=== PATIENT | female | born 1960 | race Caucasian/White ===

== ENCOUNTER 2016-06-26 09:26 | Outpatient (CLI) | payer OTHER | END 2016-06-26 09:27 | disposition home or self-care (01) | DX: K76.0 Fatty (change of) liver, not elsewhere classified (principal); R14.0 Abdominal distension (gaseous) ==

== ENCOUNTER 2016-06-26 10:04 | Outpatient (CLI) | payer OTHER | END 2016-06-26 10:05 | disposition home or self-care (01) | DX: Z12.31 Encounter for screening mammogram for malignant neoplasm of breast (principal) ==

== ENCOUNTER 2017-07-17 08:05 | Outpatient (CLI) | payer OTHER ==
[2017-07-17 12:43] LABS: BASOPHILS % (AUTO) 0.9 %; EOSINOPHILS # (AUTO) 0.1 10^3/uL (0.0-0.7); EOSINOPHILS % (AUTO) 1.7 %; HGB - HEMOGLOBIN 12.9 g/dL (12.0-16.0); LYMPHOCYTES # (AUTO) 1.8 10^3/uL (1.5-3.5); LYMPHOCYTES % (AUTO) 37.9 %; MEAN CORPUSCULAR HEMOGLOBIN 33.4 pg (27.0-31.0); MEAN CORPUSCULAR HGB CONC 34.4 g/dL (32.0-36.0); MEAN CORPUSCULAR VOLUME 96.9 fL (81.0-99.0); MEAN PLATELET VOLUME 8.7 fL (7.9-10.8); MONOCYTES # (AUTO) 0.4 10^3/uL (0.0-1.0); MONOCYTES % (AUTO) 8.3 %; NEUTROPHILS # (AUTO) 2.5 10^3/uL (1.5-6.6); NEUTROPHILS % (AUTO) 51.2 %; PLT - PLATELET COUNT 252 10^3/uL (130-450); RED BLOOD COUNT 3.87 10^6/uL (4.20-5.40); RED CELL DISTRIBUTION WIDTH 12.1 % (12.0-15.0); WHITE BLOOD COUNT 4.9 x10^3/uL (4.8-10.8)
[2017-07-17 13:03] LABS: ALBUMIN 4.5 g/dL (3.2-5.5); ALBUMIN/GLOBULIN RATIO 1.7 (1.0-2.2); ALKALINE PHOSPHATASE 42 IU/L (42-121); ALT ALANINE AMINOTRANSFERASE 26 IU/L (10-60); AST ASPARTATE AMINOTRANSFERASE 24 IU/L (10-42); BILIRUBIN,TOTAL 0.8 mg/dL (0.2-1.0); BUN - BLOOD UREA NITROGEN 10 mg/dL (6-20); CALCIUM 9.5 mg/dL (8.5-10.3); CARBON DIOXIDE - CO2 27 mmol/L (21-32); CHLORIDE 101 mmol/L (101-111); CHOL/HDL RATIO 3.9 (<4.4); CHOLESTEROL 235 mg/dL; CREATININE 0.8 mg/dL (0.4-1.0); GFR - MDRD 74 (>89); GLUCOSE 95 mg/dL (70-100); HDL CHOLESTEROL 60 mg/dL; LDL CHOLESTEROL,CALCULATED 160 mg/dL; LDL/HDL RATIO 2.7 (<4.4); SODIUM 135 mmol/L (135-145); TOTAL PROTEIN 7.1 g/dL (6.7-8.2); VLDL CHOLESTEROL 15 mg/dL
[2017-07-17 13:22] LABS: HB2 TOTAL 13.8 g/dL; HEMOGLOBIN A1C 0.49 g/dL; HEMOGLOBIN A1C % 5.4 % (4.6-6.2)
== END 2017-07-17 08:06 | disposition home or self-care (01) ==
LOC: LAB.R 08:05
PROVIDERS: ATTEND Nurse Practitioner Primary Care
DX: Z00.00 Encounter for general adult medical examination without abnormal findings (principal); E78.5 Hyperlipidemia, unspecified; R73.01 Impaired fasting glucose; M19.90 Unspecified osteoarthritis, unspecified site; K90.0 Celiac disease; K21.9 Gastro-esophageal reflux disease without esophagitis; K50.90 Crohn's disease, unspecified, without complications; B19.20 Unspecified viral hepatitis C without hepatic coma; Z79.899 Other long term (current) drug therapy
CPT/HCPCS: 80053; 80061; 83036; 83721; 84443; 85025

== ENCOUNTER 2017-08-02 15:09 | Outpatient (CLI) | payer OTHER ==
--- NOTE | 2017-08-03 13:10 | DEXA Report ---
DEXA SCAN: 08/02/2017 INDICATION: Postmenopausal. TECHNIQUE: Dual energy x-ray absorptiometry (DXA) was performed on a [employer] system. Regions measured are the AP spine, femoral neck, and, if needed, forearm. COMPARISON: None. In accordance with the International Society for Clinical Densitometry (ISCD) guidelines, data from previous exams may be reanalyzed using current recommendations and techniques. This is done to allow a more accurate basis for comparison with the current study. FINDINGS Data for the lumbar spine is as follows: REGION BMD (g/cm/cm) T-SCORE Z-SCORE L1 0.989 -1.2 -0.3 L2 1.000 -1.7 -0.8 L3 1.161 -0.3 0.5 L4 1.209 0.1 0.9 L1-L4 1.096 -0.7 0.1 NOTE: All evaluable vertebrae are used for classification. Data for the hip is as follows: REGION BMD (g/cm/cm) T-SCORE Z-SCORE Neck 0.830 -1.5 -0.5 TOTAL 0.880 -1.0 -0.3 NOTE: The femoral neck or total proximal femur, whichever is lowest, is used for classification. IMPRESSION WHO CLASSIFICATION BASED ON THE INTERNATIONAL REFERENCE STANDARD IS OSTEOPENIA. FRACTURE RISK IS INCREASED. RECOMMENDATION: Patients with diagnosis of osteoporosis or osteopenia should have regular bone mineral density assessment. For those eligible for Medicare, routine testing is allowed once every 2 years. Testing frequency can be increased for patients who have rapidly progressing disease or for those who are receiving medical therapy to restore bone mass. COMMENT World Health Organization (WHO) definitions for osteoporosis and osteopenia: NORMAL BMD: T-score at 1.0 or higher, fracture risk is low. OSTEOPENIA BMD: T-score between 1.0 and -2.5, fracture risk is increased. OSTEOPOROSIS BMD: T-score at 2.5 or lower, fracture risk high. National Osteoporosis Foundation recommends: 1. Obtain adequate dietary calcium (at least 1200 mg per day) and vitamin D (400 -800 international units per day). 2. Participate, as appropriate, in regular weightbearing and muscle- strengthening exercise. 3. Avoid tobacco use and reduce alcohol and caffeine intake. 4. For more detailed information see the website at www.NOF.org. TD: 08/03/2017 11:27 CAROLINE
== END 2017-08-02 15:10 | disposition home or self-care (01) ==
LOC: DI 15:09
PROVIDERS: ATTEND Nurse Practitioner Primary Care
DX: Z78.0 Asymptomatic menopausal state (principal); Z00.00 Encounter for general adult medical examination without abnormal findings
CPT/HCPCS: 77080

== ENCOUNTER 2017-08-02 15:12 | Outpatient (CLI) | payer OTHER ==
--- NOTE | 2017-08-03 20:51 | Mammography Report ---
SCREENING MAMMOGRAM: 08/03/2017 CLINICAL INDICATION: A 57-year-old for screening. COMPARISON: 06/2016, 06/2015, 03/2012, 06/2010 TECHNIQUE: Routine CC and MLO projections were obtained of the breasts. FINDINGS: The breasts again demonstrate scattered fibroglandular densities bilaterally. Coarse and punctate, typically benign calcifications are present, no suspicious masses, clustered microcalcifications, or regions of architectural distortion are identified. IMPRESSION: BENIGN FINDINGS. RECOMMENDATION: Routine annual screening unless otherwise clinically indicated. BIRADS CATEGORY - 2 BENIGN FINDINGS. STANDARD QUALIFYING STATEMENTS: 1. This examination was reviewed with the aid of Computer-Aided Detection (CAD). 2. A negative or benign imaging report should not delay biopsy if clinically suspicious findings are present. Consider surgical consultation if warranted. More than 5% of cancers are not identified by imaging. 3. Dense breasts may obscure an underlying neoplasm. TD: 08/03/2017 20:50
== END 2017-08-02 15:13 | disposition home or self-care (01) ==
LOC: DI 15:12
PROVIDERS: ATTEND Nurse Practitioner Primary Care
DX: Z00.00 Encounter for general adult medical examination without abnormal findings (principal); Z12.31 Encounter for screening mammogram for malignant neoplasm of breast
CPT/HCPCS: 77067

== ENCOUNTER 2018-06-04 09:00 | Outpatient (CLI) | payer OTHER ==
[2018-06-04 16:02] LABS: ALBUMIN 4.5 g/dL (3.2-5.5); ALBUMIN/GLOBULIN RATIO 1.7 (1.0-2.2); ALKALINE PHOSPHATASE 49 IU/L (42-121); ALT ALANINE AMINOTRANSFERASE 19 IU/L (10-60); AST ASPARTATE AMINOTRANSFERASE 19 IU/L (10-42); BASOPHILS % (AUTO) 0.6 %; BILIRUBIN,TOTAL 0.7 mg/dL (0.2-1.0); BUN - BLOOD UREA NITROGEN 17 mg/dL (6-20); CALCIUM 9.1 mg/dL (8.5-10.3); CARBON DIOXIDE - CO2 28 mmol/L (21-32); CHLORIDE 93 mmol/L (101-111); CHOL/HDL RATIO 3.2 (<4.4); CHOLESTEROL 224 mg/dL; CREATININE 0.6 mg/dL (0.4-1.0); EOSINOPHILS % (AUTO) 0.8 %; GFR - MDRD 103 (>89); GLUCOSE 96 mg/dL (70-100); HDL CHOLESTEROL 69 mg/dL; HGB - HEMOGLOBIN 12.6 g/dL (12.0-16.0); LDL CHOLESTEROL,CALCULATED 146 mg/dL; LDL/HDL RATIO 2.1 (<4.4); LYMPHOCYTES # (AUTO) 1.7 10^3/uL (1.5-3.5); LYMPHOCYTES % (AUTO) 29.3 %; MEAN CORPUSCULAR HGB CONC 33.9 g/dL (32.0-36.0); MEAN CORPUSCULAR VOLUME 97.6 fL (81.0-99.0); MEAN PLATELET VOLUME 8.6 fL (7.9-10.8); MONOCYTES # (AUTO) 0.4 10^3/uL (0.0-1.0); MONOCYTES % (AUTO) 6.9 %; NEUTROPHILS # (AUTO) 3.6 10^3/uL (1.5-6.6); NEUTROPHILS % (AUTO) 62.4 %; PLT - PLATELET COUNT 251 10^3/uL (130-450); RED CELL DISTRIBUTION WIDTH 12.2 % (12.0-15.0); SODIUM 129 mmol/L (135-145); TOTAL PROTEIN 7.1 g/dL (6.7-8.2); VLDL CHOLESTEROL 9 mg/dL; WHITE BLOOD COUNT 5.7 x10^3/uL (4.8-10.8)
[2018-06-04 16:21] LABS: HB2 TOTAL 13.4 g/dL; HEMOGLOBIN A1C 0.54 g/dL; HEMOGLOBIN A1C % 5.8 % (4.6-6.2)
== END 2018-06-04 23:59 | disposition home or self-care (01) ==
LOC: LAB.R 09:00
PROVIDERS: ATTEND Nurse Practitioner Primary Care
DX: E88.81 Metabolic syndrome and other insulin resistance (principal); K90.0 Celiac disease; K50.90 Crohn's disease, unspecified, without complications; E78.5 Hyperlipidemia, unspecified
CPT/HCPCS: 80053; 80061; 83036; 83721; 85025

== ENCOUNTER 2018-07-03 07:55 | Outpatient (CLI) | payer OTHER ==
[2018-07-03 08:33] LABS: CALCIUM 9.5 mg/dL (8.5-10.3); CREATININE 0.8 mg/dL (0.4-1.0)
== END 2018-07-03 07:56 | disposition home or self-care (01) ==
LOC: LAB 07:55
PROVIDERS: ATTEND Internal Medicine
DX: E87.1 Hypo-osmolality and hyponatremia (principal)
CPT/HCPCS: 36415; 80048; 84300

== ENCOUNTER 2018-12-07 08:16 | Outpatient (CLI) | payer OTHER ==
--- NOTE | 2018-12-07 14:13 | MRI Report ---
Reason: NEUROPATHY, NECK PAIN, CHRONIC, CLUSTER HEADACHE Procedure Date: 12/07/2018 Accession Number: [id number] / [id number] Procedure: MRI - Cervical Spine W/O CPT Code: FULL RESULT: EXAM: MRI CERVICAL SPINE WITHOUT CONTRAST EXAM DATE: 12/07/2018 09:08 AM. CLINICAL HISTORY: Neuropathy, chronic neck pain, cluster headache. COMPARISONS: 11/05/2018 radiographs. TECHNIQUE: Multiplanar, multisequence T1-weighted and fluid-sensitive sequences of the cervical spine without contrast. Other: None. FINDINGS: Neurologic Structures: The visualized posterior fossa structures are unremarkable. No signal abnormality in the visualized spinal cord. Alignment: No scoliosis or spondylolisthesis. Bone Marrow: No fractures. Type I endplate change is seen. Interspace Levels/Facets: C1-C2: Unremarkable. C2-C3: Unremarkable. C3-C4: Mild left facet osteophyte is causes mild left foraminal narrowing. A mild posterior disk/osteophyte complex causes mild spinal canal narrowing. C4-C5: Mild disk height loss is accompanied by anterior endplate spurring. A posterior disk/osteophyte complex and ligamentum flavum hypertrophy cause moderate spinal canal and left foraminal narrowing. There cord is flattened into a triangular configuration. C5-C6: The disk is desiccated. A central posterior disk/osteophyte complex and ligamentum flavum hypertrophy combined with left facet osteoarthritis to cause moderate spinal canal and severe left foraminal narrowing. The cord is flattened anteriorly. C6-C7: Unremarkable. C7-T1: A mild posterior disk protrusion causes minimal spinal canal narrowing. Musculature: Normal. No edema or fatty atrophy. Other: The paravertebral and prevertebral soft tissues are normal. IMPRESSION: 1. Mild spinal canal narrowing at C3-C4 due to disk/osteophyte complex. 2. Moderate spinal canal and left foraminal narrowing at C4-C5 due to disk and posterior element degenerative changes. 3. Moderate spinal canal and severe left foraminal narrowing at C5-C6 due to disk and posterior element degenerative changes. RADIA
== END 2018-12-07 08:17 | disposition home or self-care (01) ==
LOC: DI 08:16
PROVIDERS: ATTEND Nurse Practitioner
DX: M50.321 Other cervical disc degeneration at C4-C5 level (principal); M48.02 Spinal stenosis, cervical region; M47.812 Spondylosis without myelopathy or radiculopathy, cervical region; M50.23 Other cervical disc displacement, cervicothoracic region
CPT/HCPCS: 72141

== ENCOUNTER 2018-12-17 11:45 | Outpatient (CLI) | payer OTHER | END 2018-12-17 11:46 | disposition home or self-care (01) | LOC: LAB 11:45 | PROVIDERS: ATTEND Nurse Practitioner | DX: R53.83 Other fatigue (principal); Z79.899 Other long term (current) drug therapy | CPT/HCPCS: 36415; 82607 ==

== ENCOUNTER 2019-04-26 16:30 | Emergency (ER) | payer OTHER ==
[2019-04-26] MEDS ORDERED: HYDROmorphone 1 MG/ML CARPUJECT IVP STA (17:27)
[2019-04-26] MEDS ORDERED: CYCLOBENZAPRINE 10 MG TABLET PO STA (17:28)
[2019-04-26] MEDS ORDERED: CHERRY SYRUP 10 ML UDC PO ONE (17:28)
[2019-04-26] MEDS ORDERED: DEXAMETHASONE 10 MG/ML VIAL PO STA (17:28)
[2019-04-26] MEDS ORDERED: HYDROmorphone 1 MG/ML CARPUJECT IM STA (17:48)
--- NOTE | 2019-04-26 17:57 | ED Physician Documentation ---
PD HPI BACK PAIN - Stated complaint Stated Complaint: BACK PX - Chief complaint Chief Complaint: Back Pain - History obtained from History obtained from: Patient, Family - History of Present Illness Timing - onset: How many weeks ago (1) Timing - duration: Weeks (1) Timing - details: Gradual onset Pain level max: 9 Pain level now: 9 Location: Mid, Lower, Right Quality: Pain, Spasm, Similar to prior episodes Associated symptoms: No: Fever, Weakness, Numbness, Incontinent of urine, Unable to urinate, Hematuria, Incontinent of stool Improves with: Rest Worsened by: Movement Contributing factors: Other (Patient states that she slipped last week, caught herself before falling on the ground. Now feels like she is having spasming in her back. She is normally on hydrocodone for chronic neck pain.). No: Lifting, Twisting, Trauma, Anticoagulated, Cancer, IVDA, Out of meds Recently seen: Not recently seen Review of Systems Constitutional: denies: Fever, Chills Respiratory: denies: Cough GI: denies: Nausea, Vomiting, Diarrhea : denies: Dysuria, Incontinent Skin: denies: Rash Musculoskeletal: denies: Neck pain Neurologic: denies: Focal weakness, Numbness, Headache PD PAST MEDICAL HISTORY - Past Medical History Past Medical History: No GI: Other Musculoskeletal: Osteoarthritis - Past Surgical History Past Surgical History: No - Present Medications Home Medications: Ambulatory Orders Medication Instructions Recorded Confirmed Cyclobenzaprine [Flexeril] 10 mg PO TID PRN #20 tablet 04/26/19 Meloxicam [Mobic] 15 mg PO DAILY PRN #20 tablet 04/26/19 Oxycodone HCl/Acetaminophen 1 - 2 each PO Q6H PRN #14 tablet 04/26/19 [Percocet 5-325 mg Tablet] predniSONE [Prednisone] 40 mg PO DAILY #10 tablet 04/26/19 - Allergies Allergies/Adverse Reactions: Allergies Allergy/AdvReac Type Severity Reaction Status Date / Time No Known Drug Allergies Allergy Verified 04/26/19 16:42 - Social History Does the pt smoke?: Yes Smoking Status: Current every day smoker PD ED PE NORMAL - Vitals Vital signs reviewed: Yes - General General: Alert and oriented X 3, No acute distress, Well developed/nourished - HEENT HEENT: Moist mucous membranes - Neck Neck: Supple, no meningeal sign - Cardiac Cardiac: RRR, Strong equal pulses - Respiratory Respiratory: No respiratory distress, Clear bilaterally - Abdomen Abdomen: Soft, Non tender, Non distended - Back Back: No spinal TTP (No midline tenderness palpation or percussion. Paraspinal spasm right greater than left, low lumbar.) - Derm Derm: Warm and dry - Extremities Extremities: Other (Normal bilateral lower extremity patellar and ankle jerk reflexes. Normal great toe extension bilaterally. no saddle anesthesia) - Neuro Neuro: Alert and oriented X 3, sheep shearer 2-12 intact, No motor deficit, No sensory deficit, Normal speech - Psych Psych: Normal mood, Normal affect Results - Vitals Vitals: Vital Signs - 24 hr 04/26/19 04/26/19 16:42 18:56 Temperature 36.5 C Heart Rate 86 85 Respiratory 14 18 Rate Blood Pressure 164/81 H 123/82 H O2 Saturation 98 95 Oxygen O2 Source Room air PD MEDICAL DECISION MAKING - ED course Complexity details: re-evaluated patient, considered differential (No cauda equina, no spinal epidural abscess, no fracture, no aortic dissection or evidence of aneursym rupture), d/w patient, d/w family ED course: Pain improved with pain medications muscle relaxants and steroids. No evidence of cauda equina, epidural abscess. No evidence of fracture. Normal neurological exam. We will continue pain medication, muscle relaxants and steroids at home. Patient ambulating well. Patient counseled regarding signs and symptoms for which I believe and urgent re-evaluation would be necessary. Patient with good understanding of and agreement to plan and is comfortable going home at this time This document was made in part using voice recognition software. While efforts are made to proofread this document, sound alike and grammatical errors may occur. Departure - Departure Disposition: 01 Home, Self Care Clinical Impression: Back muscle spasm Condition: Good Instructions: ED Spasm Back No Trauma Follow-Up: Maris Aponte ARNP, GRIDDLE ATTENDANT-C [Primary Care Provider] - Within 1 week Prescriptions: Cyclobenzaprine [Flexeril] 10 mg PO TID PRN #20 tablet PRN Reason: Spasms Meloxicam [Mobic] 15 mg PO DAILY PRN #20 tablet PRN Reason: pain Oxycodone HCl/Acetaminophen [Percocet 5-325 mg Tablet] 1 - 2 each PO Q6H PRN #14 tablet PRN Reason: pain predniSONE [Prednisone] 40 mg PO DAILY #10 tablet Comments: This should improve over the next few days. Return if you worsen. Do not drink alcohol or drive while on narcotic pain medicine. Note that many narcotic pain relievers also contain tylenol/acetaminophen. Please ensure that your total dose of acetaminophen from all sources does not exceed 3 grams (3000mg) per day. You may constipated on this medication, take a stool softener such as "Colace" twice a day while you are on it. Also recommend a kzvl-vdo-[id number] laxative such as senna or MiraLAX any day that you do not have a bowel movement. If you received narcotic pain medication in the emergency department, do not drive or operate machinery for the next 24 hours. Discharge Date/Time: 04/26/19 19:06
[2019-04-26] MEDS ORDERED: oxyCODONE 5 MG TABLET PO STA (18:33)
[2019-04-26 18:57] VITALS: BP 123/82
[2019-04-26] MEDS ORDERED: oxyCODONE/ACET 5/325 Prepack 4 PO STA (19:00)
== END 2019-04-26 19:06 | disposition home or self-care (01) ==
LOC: ED 16:30
DX: M62.830 Muscle spasm of back (principal); M54.5 Low back pain; F17.200 Nicotine dependence, unspecified, uncomplicated
CPT/HCPCS: 96374; 99284; A9270; J1170

== ENCOUNTER 2019-04-27 01:14 | Outpatient (CLI) | payer OTHER | END 2019-04-27 01:15 | disposition critical access hospital (66) | LOC: EMS 01:14 | PROVIDERS: ATTEND Surgery | DX: M54.9 Dorsalgia, unspecified (principal) | CPT/HCPCS: A0425; A0429 ==

== ENCOUNTER 2019-04-27 01:26 | Emergency (ER) | payer OTHER ==
--- NOTE | 2019-04-27 01:37 | ED Physician Documentation ---
PD HPI BACK PAIN - Stated complaint Stated Complaint: BACK PX - Chief complaint Chief Complaint: Back Pain - History obtained from History obtained from: Patient, EMS - History of Present Illness Timing - onset: How many days ago (2) Timing - details: Gradual onset Pain level now: 10 Location: Lower, Right Quality: Pain, Spasm Associated symptoms: No: Fever, Weakness, Numbness, Incontinent of urine, Unable to urinate, Hematuria, Incontinent of stool Improves with: Rest Worsened by: Movement Recently seen: Emergency Dept - Additional information Additional information: T+R several hours ago from this ED, returns for same c/o of back pain. patient says that one week ago, her toe caught on the ground while walking, causing a brief stumble. she had sudden onset of mild right low back pain when this happened, and the pain has gradually, steadily worsened and radiates down RLE to thigh. she had improvement when treated in ED with dilaudid and flexeril, but pain gradually returned after getting home. she took a dose of percocet but this made her nauseas and did not provide adequate relief. Review of Systems Constitutional: reports: Reviewed and negative GI: reports: Nausea. denies: Abdominal Pain : denies: Incontinent Musculoskeletal: reports: Back pain Neurologic: denies: Focal weakness, Numbness PD PAST MEDICAL HISTORY - Past Medical History Past Medical History: No GI: Other Musculoskeletal: Osteoarthritis - Past Surgical History Past Surgical History: No - Present Medications Home Medications: Ambulatory Orders Medication Instructions Recorded Confirmed Cyclobenzaprine [Flexeril] 10 mg PO TID PRN #20 tablet 04/26/19 Meloxicam [Mobic] 15 mg PO DAILY PRN #20 tablet 04/26/19 Oxycodone HCl/Acetaminophen 1 - 2 each PO Q6H PRN #14 tablet 04/26/19 [Percocet 5-325 mg Tablet] predniSONE [Prednisone] 40 mg PO DAILY #10 tablet 04/26/19 Lidocaine Patch 5% [Lidoderm Patch] 1 patch TOP DAILY PRN #10 patch 04/27/19 Ondansetron Odt [Zofran] 4 mg TL Q6H PRN #14 tablet 04/27/19 diazePAM [Valium] 5 mg PO TID PRN #20 tablet 04/27/19 - Allergies Allergies/Adverse Reactions: Allergies Allergy/AdvReac Type Severity Reaction Status Date / Time No Known Drug Allergies Allergy Verified 04/26/19 16:42 - Social History Does the pt smoke?: Yes Smoking Status: Current every day smoker PD ED PE NORMAL - Vitals Vital signs reviewed: Yes - General General: Alert and oriented X 3, Well developed/nourished, Other (obvious painful distress) - Cardiac Cardiac: RRR, No murmur - Respiratory Respiratory: No respiratory distress, Clear bilaterally - Abdomen Abdomen: Soft, Non tender - Back Back: No CVA TTP, No spinal TTP - Derm Derm: No rash - Neuro Neuro: No motor deficit, No sensory deficit, Other (2+/4 DTR bilateral patella) Results - Vitals Vitals: Oxygen O2 Source Room air - Labs Labs: Laboratory Tests 04/27/19 04/27/19 02:14 02:14 WBC 6.4 RBC 3.71 L Hgb 12.2 Hct 35.4 L MCV 95.4 MCH 32.9 H MCHC 34.5 RDW 11.6 L Plt Count 261 MPV 9.1 Neut # (Auto) 5.4 Lymph # (Auto) 0.9 L Christian # (Auto) 0.1 Eos # (Auto) 0.0 Baso # (Auto) 0.0 Absolute Nucleated RBC 0.00 Nucleated RBC % 0.0 Sodium 127 L Potassium 4.0 Chloride 94 L Carbon Dioxide 21 Anion Gap 12.0 BUN 7 Creatinine 0.6 Estimated GFR (MDRD) 102 Glucose 166 H Calcium 9.6 PD MEDICAL DECISION MAKING - ED course Complexity details: reviewed old records, reviewed results, re-evaluated patient, considered differential, d/w patient ED course: patient reported significant symptom relief with IV dilaudid and po valium. also given toradol IV. she was in NAD and ambulating without assistance prior to d/c Departure - Departure Disposition: Home, Self Care Clinical Impression: Back pain Condition: Good Instructions: ED Back Care Tips, ED Exercises Lumbar Muscles, ED Sciatica Follow-Up: Maris Aponte ARNP, PRINTER MAINTAINER-C [Primary Care Provider] - Prescriptions: diazePAM [Valium] 5 mg PO TID PRN #20 tablet PRN Reason: Spasms Lidocaine Patch 5% [Lidoderm Patch] 1 patch TOP DAILY PRN #10 patch PRN Reason: pain Ondansetron Odt [Zofran] 4 mg TL Q6H PRN #14 tablet PRN Reason: Nausea / Vomiting Discharge Date/Time: 04/27/19 06:10
[2019-04-27] MEDS ORDERED: ONDANSETRON 4 MG/2 ML VIAL IVP STA (01:54)
[2019-04-27] MEDS ORDERED: HYDROmorphone 1 MG/ML CARPUJECT IVP STA (01:54)
[2019-04-27] MEDS ORDERED: diazePAM 5 MG TABLET PO STA ×2 (01:54→05:52)
[2019-04-27 02:26] LABS: BASOPHILS % (AUTO) 0.3 %; HGB - HEMOGLOBIN 12.2 g/dL (12.0-16.0); LYMPHOCYTES # (AUTO) 0.9 10^3/uL (1.5-3.5); LYMPHOCYTES % (AUTO) 13.6 %; MEAN CORPUSCULAR HEMOGLOBIN 32.9 pg (27.0-31.0); MEAN CORPUSCULAR HGB CONC 34.5 g/dL (32.0-36.0); MEAN CORPUSCULAR VOLUME 95.4 fL (81.0-99.0); MEAN PLATELET VOLUME 9.1 fL (7.9-10.8); MONOCYTES # (AUTO) 0.1 10^3/uL (0.0-1.0); MONOCYTES % (AUTO) 1.7 %; NEUTROPHILS # (AUTO) 5.4 10^3/uL (1.5-6.6); NEUTROPHILS % (AUTO) 83.8 %; PLT - PLATELET COUNT 261 10^3/uL (130-450); RED BLOOD COUNT 3.71 10^6/uL (4.20-5.40); RED CELL DISTRIBUTION WIDTH 11.6 % (12.0-15.0); WHITE BLOOD COUNT 6.4 x10^3/uL (4.8-10.8)
[2019-04-27 02:35] LABS: CALCIUM 9.6 mg/dL (8.5-10.3); CREATININE 0.6 mg/dL (0.4-1.0)
[2019-04-27] MEDS ORDERED: HYDROmorphone 2 MG/ML VIAL IVP STA (03:02)
[2019-04-27] MEDS ORDERED: KETOROLAC 30 MG/ML VIAL IVP STA (03:03)
--- NOTE | 2019-04-27 03:10 | XRAY Report ---
Reason: LBP Procedure Date: 04/27/2019 Accession Number: [id number] / [id number] Procedure: XR - Lumbar Spine 2 View CPT Code: Final Report FULL RESULT: EXAM: LUMBOSACRAL SPINE RADIOGRAPHY EXAM DATE: 04/27/2019 02:53 AM. CLINICAL HISTORY: Low back pain. COMPARISONS: XR LUMBAR SPINE 2 OR 3 VIEWS 11/18/2007 1:13 PM. TECHNIQUE: 3 views. FINDINGS: Alignment: Unremarkable. Bones: Five [id number] lumbar vertebral bodies are present. No fractures or bone lesions. Disks: Mild degenerative disk disease, most notably at L3-L4. Facets: Degenerative joint disease in the lower lumbar facet joints. Sacroiliac Joints: Mild degenerative changes. Soft Tissues: Grossly unremarkable. IMPRESSION: 1. Degenerative disk disease and degenerative joint disease. No acute abnormality seen. RADIA
[2019-04-27 05:27] VITALS: BP 123/67
== END 2019-04-27 06:10 | disposition home or self-care (01) ==
LOC: EDUNIT# → ED 01:26
DX: M54.9 Dorsalgia, unspecified (principal); F17.200 Nicotine dependence, unspecified, uncomplicated
CPT/HCPCS: 36415; 72100; 80048; 85025; 96374; 96375; 99284; A9270; J1170

== ENCOUNTER 2019-06-27 09:26 | Outpatient (CLI) | payer OTHER ==
[2019-06-27 10:06] LABS: BASOPHILS # (AUTO) 0.1 10^3/uL (0.0-0.1); BASOPHILS % (AUTO) 0.7 %; EOSINOPHILS % (AUTO) 0.5 %; HGB - HEMOGLOBIN 11.7 g/dL (12.0-16.0); LYMPHOCYTES # (AUTO) 1.8 10^3/uL (1.5-3.5); LYMPHOCYTES % (AUTO) 24.7 %; MEAN CORPUSCULAR HEMOGLOBIN 33.4 pg (27.0-31.0); MEAN CORPUSCULAR HGB CONC 33.2 g/dL (32.0-36.0); MEAN CORPUSCULAR VOLUME 100.6 fL (81.0-99.0); MEAN PLATELET VOLUME 9.5 fL (7.9-10.8); MONOCYTES # (AUTO) 0.5 10^3/uL (0.0-1.0); MONOCYTES % (AUTO) 7.4 %; NEUTROPHILS # (AUTO) 4.9 10^3/uL (1.5-6.6); NEUTROPHILS % (AUTO) 66.3 %; PLT - PLATELET COUNT 240 10^3/uL (130-450); RED CELL DISTRIBUTION WIDTH 12.2 % (12.0-15.0); WHITE BLOOD COUNT 7.3 x10^3/uL (4.8-10.8)
[2019-06-27 10:33] LABS: ALBUMIN 4.1 g/dL (3.2-5.5); ALBUMIN/GLOBULIN RATIO 1.3 (1.0-2.2); ALKALINE PHOSPHATASE 40 IU/L (42-121); ALT ALANINE AMINOTRANSFERASE 19 IU/L (10-60); AST ASPARTATE AMINOTRANSFERASE 19 IU/L (10-42); BILIRUBIN,TOTAL 0.8 mg/dL (0.2-1.0); BUN - BLOOD UREA NITROGEN 8 mg/dL (6-20); CALCIUM 9.3 mg/dL (8.5-10.3); CARBON DIOXIDE - CO2 28 mmol/L (21-32); CHLORIDE 102 mmol/L (101-111); CHOL/HDL RATIO 2.9 (<4.4); CHOLESTEROL 233 mg/dL; CREATININE 0.6 mg/dL (0.4-1.0); GFR - MDRD 102 (>89); GLUCOSE 114 mg/dL (70-100); HDL CHOLESTEROL 81 mg/dL; LDL CHOLESTEROL,CALCULATED 137 mg/dL; LDL/HDL RATIO 1.7 (<4.4); SODIUM 137 mmol/L (135-145); TOTAL PROTEIN 7.2 g/dL (6.7-8.2); VLDL CHOLESTEROL 15 mg/dL
[2019-06-27 10:36] LABS: HB2 TOTAL 12.2 g/dL; HEMOGLOBIN A1C 0.42 g/dL; HEMOGLOBIN A1C % 5.3 % (4.6-6.2)
== END 2019-06-27 09:27 | disposition home or self-care (01) ==
LOC: LAB 09:26
PROVIDERS: ATTEND Nurse Practitioner
DX: I95.9 Hypotension, unspecified (principal); R53.83 Other fatigue; E78.5 Hyperlipidemia, unspecified; K90.0 Celiac disease; K21.9 Gastro-esophageal reflux disease without esophagitis; K86.81 Exocrine pancreatic insufficiency
CPT/HCPCS: 36415; 80053; 80061; 83036; 83721; 84443; 85025

== ENCOUNTER 2020-07-21 12:31 | Outpatient (CLI) | payer OTHER ==
[2020-07-21 13:08] LABS: BILIRUBIN,URINE NEGATIVE (NEGATIVE); GLUCOSE, URINE (UA) NEGATIVE (NEGATIVE); KETONES,URINE (UA) NEGATIVE (NEGATIVE); LEUKOCYTE ESTERASE, URINE NEGATIVE (NEGATIVE); NITRITE,URINE NEGATIVE (NEGATIVE); OCCULT BLOOD,URINE TRACE-INTA (NEGATIVE); PH,URINE 6.5 PH (5.0-7.5); PROTEIN,URINE NEGATIVE (NEGATIVE); UROBILINOGEN,URINE 0.2 (NORMAL) E.U./dL (NORMAL)
[2020-07-21 13:09] LABS: CLARITY,URINE CLEAR (CLEAR)
== END 2020-07-21 12:32 | disposition home or self-care (01) ==
LOC: LAB 12:31
PROVIDERS: ATTEND Neurological Surgery
DX: Z01.812 Encounter for preprocedural laboratory examination (principal)
CPT/HCPCS: 81001; 81003; 81599; 87086

== ENCOUNTER 2020-07-30 07:00 | Outpatient (CLI) | payer OTHER | END 2020-07-30 23:59 | disposition home or self-care (01) | LOC: COV 07:00 | PROVIDERS: ATTEND Neurological Surgery | DX: Z01.812 Encounter for preprocedural laboratory examination (principal); M51.16 Intervertebral disc disorders with radiculopathy, lumbar region; Z20.822 Contact with and (suspected) exposure to COVID-19 ==

== ENCOUNTER 2021-08-02 17:52 | Outpatient (CLI) | payer OTHER ==
[2021-08-02 18:27] LABS: BASOPHILS # (AUTO) 0.1 10^3/uL (0.0-0.1); BASOPHILS % (AUTO) 0.7 %; EOSINOPHILS # (AUTO) 0.1 10^3/uL (0.0-0.7); EOSINOPHILS % (AUTO) 1.3 %; HCT - HEMATOCRIT 35.5 % (37.0-47.0); LYMPHOCYTES # (AUTO) 2.8 10^3/uL (1.5-3.5); LYMPHOCYTES % (AUTO) 41.4 %; MEAN CORPUSCULAR HGB CONC 33.8 g/dL (32.0-36.0); MEAN CORPUSCULAR VOLUME 97.5 fL (81.0-99.0); MEAN PLATELET VOLUME 8.8 fL (7.9-10.8); MONOCYTES # (AUTO) 0.7 10^3/uL (0.0-1.0); MONOCYTES % (AUTO) 10.3 %; NEUTROPHILS # (AUTO) 3.1 10^3/uL (1.5-6.6); NEUTROPHILS % (AUTO) 45.9 %; PLT - PLATELET COUNT 276 10^3/uL (130-450); RED BLOOD COUNT 3.64 10^6/uL (4.20-5.40); RED CELL DISTRIBUTION WIDTH 11.7 % (12.0-15.0); WHITE BLOOD COUNT 6.8 x10^3/uL (4.8-10.8)
[2021-08-02 19:03] LABS: ALBUMIN 4.3 g/dL (3.2-5.5); ALBUMIN/GLOBULIN RATIO 1.4 (1.0-2.2); ALKALINE PHOSPHATASE 48 IU/L (42-121); ALT ALANINE AMINOTRANSFERASE 21 IU/L (10-60); AST ASPARTATE AMINOTRANSFERASE 21 IU/L (10-42); BILIRUBIN,TOTAL 0.9 mg/dL (0.2-1.0); BUN - BLOOD UREA NITROGEN 13 mg/dL (6-20); CALCIUM 9.4 mg/dL (8.5-10.3); CARBON DIOXIDE - CO2 28 mmol/L (21-32); CHLORIDE 100 mmol/L (101-111); CHOL/HDL RATIO 3.2 (<4.4); CHOLESTEROL 211 mg/dL; CREATININE 0.7 mg/dL (0.4-1.0); GFR - MDRD 85 (>89); GLUCOSE 101 mg/dL (70-100); HDL CHOLESTEROL 66 mg/dL; LDL CHOLESTEROL,CALCULATED 134 mg/dL; POTASSIUM 3.8 mmol/L (3.5-5.0); SODIUM 137 mmol/L (135-145); TOTAL PROTEIN 7.4 g/dL (6.7-8.2); TRIGLYCERIDES 57 mg/dL; VLDL CHOLESTEROL 11 mg/dL
[2021-08-02 19:10] LABS: THYROID STIMULATING HORMONE 1.64 uIU/mL (0.34-5.60)
== END 2021-08-02 17:53 | disposition home or self-care (01) ==
LOC: LAB 17:52
PROVIDERS: ATTEND Family Medicine
DX: I95.9 Hypotension, unspecified (principal); R53.83 Other fatigue; E87.1 Hypo-osmolality and hyponatremia; E88.81 Metabolic syndrome and other insulin resistance; B19.20 Unspecified viral hepatitis C without hepatic coma; E78.5 Hyperlipidemia, unspecified
CPT/HCPCS: 36415; 80053; 80061; 83721; 84443; 85025

== ENCOUNTER 2022-10-18 18:19 | Outpatient (CLI) | payer OTHER | END 2022-10-18 23:59 | disposition critical access hospital (66) | LOC: EMS 18:19 | DX: R53.1 Weakness (principal); R42 Dizziness and giddiness; R11.0 Nausea; R63.8 Other symptoms and signs concerning food and fluid intake | CPT/HCPCS: A0425; A0427 ==

== ENCOUNTER 2022-10-18 18:37 | Emergency (ER) | payer OTHER ==
[2022-10-18] MEDS ORDERED: SODIUM CHLORIDE 0.9% 1,000 ML IV STA (18:45)
--- NOTE | 2022-10-18 18:46 | ED Physician Documentation ---
History of Present Illness - Stated complaint Stated Complaint: HEAT EXHAUSTION - History obtained from History obtained from: Patient, EMS - Additonal information Additional information: 62-year-old presents for evaluation of what she thinks may be heat exhaustion. She has been working out in the yard the last few days and not drinking much water but she has been drinking alcohol. She felt weak and dizzy and also notes to have ongoing months worth of chest pain, a very focal pain at the left costochondral junction that is not exertional. Prehospital vital signs were notable for hypertension and normal temperature. Normal EKG prehospital. PD PAST MEDICAL HISTORY - Past Medical History GI: Other Musculoskeletal: Osteoarthritis - Past Surgical History Past Surgical History: No - Present Medications Home Medications: Ambulatory Orders Medication Instructions Recorded Confirmed Cyclobenzaprine [Flexeril] 10 mg PO TID PRN #20 tablet 04/26/19 Meloxicam [Mobic] 15 mg PO DAILY PRN #20 tablet 04/26/19 Oxycodone HCl/Acetaminophen 1 - 2 each PO Q6H PRN #14 tablet 04/26/19 [Percocet 5-325 mg Tablet] predniSONE [Prednisone] 40 mg PO DAILY #10 tablet 04/26/19 Lidocaine Patch 5% [Lidoderm Patch] 1 patch TOP DAILY PRN #10 patch 04/27/19 Ondansetron Odt [Zofran] 4 mg TL Q6H PRN #14 tablet 04/27/19 diazePAM [Valium] 5 mg PO TID PRN #20 tablet 04/27/19 - Allergies Allergies/Adverse Reactions: Allergies Allergy/AdvReac Type Severity Reaction Status Date / Time No Known Drug Allergies Allergy Verified 10/18/22 18:46 - Social History Does the pt smoke?: Yes Smoking Status: Current every day smoker PD ED PE NORMAL - Vitals Vital signs reviewed: Yes - General General: Alert and oriented X 3, No acute distress, Other (Tearful at times, talking about the loss of her dad in December.) - HEENT HEENT: PERRL, EOMI - Neck Neck: Supple, no meningeal sign, No bony TTP - Cardiac Cardiac: RRR, No murmur - Respiratory Respiratory: No respiratory distress, Clear bilaterally - Abdomen Abdomen: Non tender - Extremities Extremities: No edema, No calf tenderness / cord - Neuro Neuro: Alert and oriented X 3, Normal speech Results - Vitals Vitals: Vital Signs - 24 hr 10/18/22 18:44 Temperature 36.8 C Heart Rate 78 Respiratory 20 Rate Blood Pressure 173/102 H O2 Saturation 100 Oxygen O2 Source Room air - EKG (time done) 191 EKG releavant findings:: EKG personally interpreted by author of this note. Relevant findings are: Rate: Rate (enter#) (69) Rhythm: NSR [place]: Normal Intervals: Normal [place] QRS: Normal Ischemia: Normal ST segments - Labs Labs: Laboratory Tests 10/18/22 10/18/22 10/18/22 18:52 18:52 18:52 WBC 6.6 RBC 3.47 L Hgb 11.6 L Hct 34.5 L MCV 99.4 H MCH 33.4 H MCHC 33.6 RDW 12.0 Plt Count 219 MPV 8.6 Neut # (Auto) 4.7 Lymph # (Auto) 1.3 L [place] # (Auto) 0.5 Eos # (Auto) 0.0 Baso # (Auto) 0.0 Absolute Nucleated RBC 0.00 Nucleated RBC % 0.0 Sodium 131 L Potassium 3.5 Chloride 99 L Carbon Dioxide 25 Anion Gap 7.0 BUN 9 Creatinine 0.7 Estimated GFR (MDRD) 85 L Glucose 114 H Calcium 8.3 L Magnesium 1.4 L Total Bilirubin 0.7 AST 27 ALT 26 Alkaline Phosphatase 56 Total Creatine Kinase 68 Troponin I High Sens < 2.3 L Total Protein 6.7 Albumin 3.8 Globulin 2.9 Albumin/Globulin Ratio 1.3 Ethyl Alcohol < 5.0 PD Medical Decision Making - ED course ED course: 62-year-old with some dizziness after alcohol use outdoors today. She is hypertensive here but her exam is otherwise unremarkable except she is tearful at times when talking about her father and his passing last year. Work-up here demonstrates mild chronic macrocytic anemia. Normal liver function. Hypomagnesemia and hyponatremia. She was given IV fluids and IV magnesium. Counseled to decrease drinking and consider counseling. Departure - Departure Disposition: 01 Home, Self Care Clinical Impression: Dizzy, Grief reaction, Hypomagnesemia, Hyponatremia Condition: Good Record reviewed to determine appropriate education?: Yes Instructions: ED Dizziness UKO Comments: As discussed, decrease alcohol use and drink plenty of fluids. I would also consider counseling, consider [email or web address]. Your magnesium and sodium levels were mildly low today and you were given both of them through your IV. Call your doctor to arrange a follow-up appointment, make the next available appointment. In the interim, return anytime if worse or if new symptoms develop.
[2022-10-18 18:52] VITALS: BP 173/102
[2022-10-18 18:57] LABS: BASOPHILS % (AUTO) 0.6 %; EOSINOPHILS % (AUTO) 0.2 %; HCT - HEMATOCRIT 34.5 % (37.0-47.0); HGB - HEMOGLOBIN 11.6 g/dL (12.0-16.0); LYMPHOCYTES # (AUTO) 1.3 10^3/uL (1.5-3.5); LYMPHOCYTES % (AUTO) 19.9 %; MEAN CORPUSCULAR HEMOGLOBIN 33.4 pg (27.0-31.0); MEAN CORPUSCULAR HGB CONC 33.6 g/dL (32.0-36.0); MEAN CORPUSCULAR VOLUME 99.4 fL (81.0-99.0); MEAN PLATELET VOLUME 8.6 fL (7.9-10.8); MONOCYTES # (AUTO) 0.5 10^3/uL (0.0-1.0); MONOCYTES % (AUTO) 6.8 %; NEUTROPHILS # (AUTO) 4.7 10^3/uL (1.5-6.6); NEUTROPHILS % (AUTO) 71.7 %; PLT - PLATELET COUNT 219 10^3/uL (130-450); RED BLOOD COUNT 3.47 10^6/uL (4.20-5.40); WHITE BLOOD COUNT 6.6 x10^3/uL (4.8-10.8)
[2022-10-18 19:08] LABS: ALBUMIN 3.8 g/dL (3.2-5.5); ALBUMIN/GLOBULIN RATIO 1.3 (1.0-2.2); ALKALINE PHOSPHATASE 56 IU/L (42-121); ALT ALANINE AMINOTRANSFERASE 26 IU/L (10-60); AST ASPARTATE AMINOTRANSFERASE 27 IU/L (10-42); BILIRUBIN,TOTAL 0.7 mg/dL (0.2-1.0); BUN - BLOOD UREA NITROGEN 9 mg/dL (6-20); CALCIUM 8.3 mg/dL (8.5-10.3); CARBON DIOXIDE - CO2 25 mmol/L (21-32); CHLORIDE 99 mmol/L (101-111); CK- CREATINE KINASE 68 IU/L (22-269); CREATININE 0.7 mg/dL (0.4-1.0); ETOH - ETHANOL < 5.0 mg/dL; GFR - MDRD 85 (>89); GLUCOSE 114 mg/dL (70-100); MAGNESIUM 1.4 mg/dL (1.7-2.8); POTASSIUM 3.5 mmol/L (3.5-5.0); SODIUM 131 mmol/L (135-145); TOTAL PROTEIN 6.7 g/dL (6.7-8.2)
[2022-10-18] MEDS ORDERED: MAGNESIUM SULFATE 2 GRAM 2 GM/50 ML BAG IV ONE (19:13)
== END 2022-10-18 19:57 | disposition home or self-care (01) ==
LOC: EDUNIT# → ED 18:37
DX: F43.20 Adjustment disorder, unspecified (principal); R42 Dizziness and giddiness; D53.9 Nutritional anemia, unspecified; E83.42 Hypomagnesemia; E87.1 Hypo-osmolality and hyponatremia; F17.200 Nicotine dependence, unspecified, uncomplicated
CPT/HCPCS: 36415; 80053; 80320; 82550; 83735; 84484; 85025; 93005; 96374; 99284